=== PATIENT | female | born 2000 | race Asian ===

== ENCOUNTER 2021-08-05 22:02 | Emergency (ER) | payer BC, SELFPAY ==
[2021-08-05 22:16] VITALS: BP 110/69; PULSE 71; RESP 16; TEMP 36.7; O2SAT 98; BMI 23.1
--- NOTE | 2021-08-05 22:20 | ED.PSYCH ---
HPI - Psych General Chief Complaint: Psychiatric Symptoms Stated Complaint: SI Time Seen by Provider: 08/05/21 22:19 Source: patient Mode of arrival: EMS Limitations: no limitations History of Present Illness HPI Narrative: Patient from college [employer] student with history of major depression came to the ED via ambulance with chief complaint of worsening of depression or suicidal ideation plan to jump from the 4th floor patient tried to jump from the window at 4th floor of her dorm but found window was too small. Patient had similar attempts in the past taking multiple medications thought process coherent and endorses depression 06/19 Related Data Home Medications Medication Instructions Recorded Confirmed fluoxetine 40 mg capsule (Prozac) 40 mg PO QAM 08/05/21 08/05/21 lurasidone 60 mg tablet (Latuda) 60 mg PO QPM 08/05/21 08/05/21 trazodone 50 mg tablet 50 mg PO BEDTIME 08/05/21 08/05/21 Allergies Allergy/AdvReac Type Severity Reaction Status Date / Time No Known Allergies Allergy Verified 08/05/21 22:25 Review of Systems Review of Systems: Constitutional : No Fever, No Chills ENT/Mouth : No Ear Pain, No Nasal Congestion, No sore throat Eyes: No Eye Pain, No Swelling, No Redness Cardiovascular : No Chest Pain, No SOB Respiratory : No Cough, No Sputum, No Dyspnea Gastrointestinal : No Nausea, No Vomiting, No Diarrhea, No Hematochezia, No Melena Genitourinary : No Dysuria, No Urinary Frequency, No Hematuria Musculoskeletal : No Myalgias Skin : No Skin Lesions, No rash Neuro : No Weakness, No Numbness, No Paresthesias, No Dizziness, No Headache Psych : positive Anxiety, positive Depression, positive SI Heme/Lymph: No Lymphadenopathy Endocrine : No Polyuria, No Polydipsia [facility] Past Medical History [facility] Narrative: Depression, bipolar disorder Social History Social History Advance Directives: No Advance Directives Information Provided: No Guardian: No Patient : No Physical Exam Vital Signs: Vital Signs: Last Vital Signs Temp 98.1 F 08/05/21 22:16 Pulse 71 08/05/21 22:16 Resp 16 08/05/21 22:16 BP 110/69 08/05/21 22:16 Pulse Ox 98 08/05/21 22:16 Body Mass Index 23.1 Appearance: Alert. Oriented X3. No acute distress. Eyes: PERRLA, No Nystagmus ENT: Pharynx normal. Oral Mucosa moist Neck: Normal inspection. Neck supple. CVS: Normal heart rate and rhythm. Pulses normal. Respiratory: No respiratory distress. Equal air entry bilateral, no wheezing/rales/rhonchi Abdomen: Soft and nontender. Bowel sounds are present, no mass palpable, no CVA tenderness Skin: Skin warm and dry. Normal skin color. Normal skin turgor. Extremities: No lower extremity edema. No calf tenderness psych: Anxious, depressed, feels suicidal no homicidal ideation no hallucination or delusions thought process Coherent Neuro: Oriented X 3. No motor deficit. No sensory deficit.No cerebellar signs , cranial nerves II-XII intact MDM - Psych MDM Narrative Medical decision making narrative: Patient seen by therapist plan to discharge her back to [facility] in the morning Lab Data Labs: Lab Results 08/05/21 08/05/21 08/05/21 Range/Units 22:45 22:45 22:45 Urine Test NEGATIVE (NEGATIVE) Urine Opiates Screen Not Detected (Not Detect) Urine Fentanyl Screen Not Detected (Not Detect) Ur Barbiturates Screen Not Detected (Not Detect) Ur Phencyclidine Scrn Not Detected (Not Detect) Ur Amphetamines Screen Not Detected (Not Detect) U Benzodiazepines Scrn Not Detected (Not Detect) Urine Cocaine Screen Not Detected (Not Detect) U Marijuana (THC) Screen Not Detected (Not Detect) COVID-19 ([facility]) Negative (Negative) COVID-19 Clin Com See Note Discharge Plan Discharge Clinical Impression: Suicidal ideation Depression Qualifiers: Depression Type: major depressive disorder Major depression recurrence: recurrent Active/Remission status: currently active Major depression episode severity: moderate Qualified Code(s): F33.1 - Major depressive disorder, recurrent, moderate Patient Disposition: Home, Self-Care Instructions: Depression (ED), Suicide Prevention (ED) Additional Instructions: Take your medications follow-up with your therapist Prescriptions: No Action fluoxetine [Prozac] 40 mg Capsule 40 mg PO QAM RF: 0 trazodone 50 mg Tablet 50 mg PO BEDTIME RF: 0 Latuda 60 mg Tablet 60 mg PO QPM RF: 0
[2021-08-05 22:58] LABS: UPreg QC Valid YES; Urine Pregnancy NEGATIVE (NEGATIVE)
[2021-08-05 23:11] LABS: COVID-19 Test Negative (Negative)
[2021-08-05 23:13] LABS: Amphetamine Screen Urine Not Detected (Not Detect); Barbiturates, Urine Not Detected (Not Detect); Benzodiazepines Screen Urine Not Detected (Not Detect); Cannabinoid Screen Urine Not Detected (Not Detect); Cocaine Screen Urine Not Detected (Not Detect); Fentanyl, urine Not Detected (Not Detect); Opiate Screen Urine Not Detected (Not Detect); Phencyclidine Screen Urine Not Detected (Not Detect)
--- NOTE | 2021-08-06 02:51 | MHC.CARE ---
CARE team notified by [facility] transportation coordinator clinician that pt was en route to ED for evaluation s/p suicidal ideation and plan. Eval completed with pt with plan for discharge in the morning. CARE team will [place] with [facility] [place] care [place] registered nurse Len Manning ([phone]) for pt to meet with a clinician upon her return to campus.
--- NOTE | 2021-08-06 06:55 | PC.NURSE ---
Patient slept through the night, no distress observed/reported, patient got assessed by care team, disposition Neil follow up by care team and will d/c back to school, behavior appropriate, med rec completed/pending provider['s approval, will continue to monitor.
[2021-08-06 07:52] VITALS: BP 107/68; PULSE 79; RESP 18; TEMP 37.1; O2SAT 98
--- NOTE | 2021-08-06 08:50 | MHC.CARE ---
Spoke to Len Manning and student about appointment times, she is set for 12:30 at [facility]. CARE Team will arrange [employer] on [facility] account for return.
== END 2021-08-06 09:14 | disposition home or self-care (01) ==
PROVIDERS: Emergency Provider Internal Medicine
DX: F33.1 Major depressive disorder, recurrent, moderate (principal); R45.851 Suicidal ideations; Z20.822 Contact with and (suspected) exposure to COVID-19; Z79.899 Other long term (current) drug therapy
CPT/HCPCS: 36415; 80307; 81025; 87635; 99284

== ENCOUNTER 2021-11-02 20:39 | Emergency (ER) | payer BC, SELFPAY ==
[2021-11-02 20:55] VITALS: BP 103/71; PULSE 68; RESP 16; TEMP 36.6; O2SAT 98; BMI 21.7
--- NOTE | 2021-11-02 21:00 | ED.PSYCH ---
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 Color YELLOW Urine Appearance CLEAR Urine pH 7.5 (5.0-8.0) Ur Specific [place] 1.020 (1.005-1.025) Urine Protein NEG (NEG-TRACE) MG/DL Urine Glucose (UA) NEG (NEG) MG/DL Urine Ketones NEG (NEG) MG/DL Urine Blood NEG (NEG) Urine Nitrite NEG (NEG) Ur Leukocyte Esterase 1+ H (NEG) Urine RBC 1-4 (0) /HPF Urine WBC 10-14 H (0-4) /HPF Ur Squamous Epith Cells 2+ /LPF Urine Bacteria 3+ /LPF Urine Mucus 2+ /LPF Urine Test (NEGATIVE) Salicylates (15-30) mg/dL Urine Opiates Screen (Not Detect) Urine Fentanyl Screen (Not Detect) Acetaminophen (<30) mcg/mL Ur Barbiturates Screen (Not Detect) Ur Phencyclidine Scrn (Not Detect) Ur Amphetamines Screen (Not Detect) U Benzodiazepines Scrn (Not Detect) Urine Cocaine Screen (Not Detect) U Marijuana (THC) Screen (Not Detect) Ethyl Alcohol mg/dL COVID-19 ([facility]) (Negative) COVID-19 Clin Com <TOM Barber - Last Filed: 11/03/21 12:45> Discharge Plan Discharge Clinical Impression: Depression Qualifiers: Depression Type: major depressive disorder Major depression recurrence: recurrent Active/Remission status: currently active Major depression episode severity: moderate Qualified Code(s): F33.1 - Major depressive disorder, recurrent, moderate <Alana Davis NP - Last Filed: 11/03/21 00:34> Prescriptions: No Action fluoxetine [Prozac] 40 mg Capsule 80 mg PO QAM RF: 0 trazodone 50 mg Tablet 50 mg PO BEDTIME RF: 0 Latuda 60 mg Tablet 60 mg PO QAM RF: 0 <Alana Davis NP - Last Filed: 11/03/21 00:34>
[2021-11-02 21:36] LABS: MANUAL DIFF FLAG NO
[2021-11-02 21:50] LABS: Ethanol < 10 mg/dL
[2021-11-02 21:56] LABS: Acetaminophen LAB < 1 mcg/mL (<30); Alanine Aminotransferase 17 U/L (0-31); Albumin Level 4.5 g/dL (3.5-5.0); Alkaline Phosphatase 56 U/L (39-117); Amphetamine Screen Urine Not Detected (Not Detect); Anion Gap 12 (12-20); Aspartate Amino Transferase 16 U/L (5-31); Barbiturates, Urine Not Detected (Not Detect); Benzodiazepines Screen Urine Not Detected (Not Detect); Bilirubin Total 0.4 mg/dL (0.0-1.0); Blood Urea Nitrogen 16 mg/dL (9-16); Calcium 9.7 mg/dL (8.4-10.2); Cannabinoid Screen Urine Not Detected (Not Detect); Carbon Dioxide 27 mmol/L (22-29); Chloride 104 mmol/L (96-108); Cocaine Screen Urine Not Detected (Not Detect); Creatinine Clr Calc Pharmacy 102.2; Estimated Glomerular Filt Rate > 60; Fentanyl, urine Not Detected (Not Detect); Glucose Random 91 mg/dL (60-115); Opiate Screen Urine Not Detected (Not Detect); Phencyclidine Screen Urine Not Detected (Not Detect); Potassium 3.8 mmol/L (3.3-5.1); Salicylate < 5.0 mg/dL (15-30); Sodium 139 mmol/L (135-145); Total Protein 7.6 g/dL (6.5-8.0)
[2021-11-02 21:59] LABS: Appearance Urine CLEAR; COVID-19 Test Negative (Negative); Color Urine YELLOW; Glucose Urine UA NEG (NEG); Leukocyte Esterase Urine 1+ (NEG); Nitrite Urine NEG (NEG); PH 7.5 (5.0-8.0); Urine Blood NEG (NEG); Urine Ketones NEG (NEG); Urine Protein NEG (NEG-TRACE)
[2021-11-02 22:02] LABS: UPreg QC Valid YES; Urine Pregnancy NEGATIVE (NEGATIVE)
[2021-11-02 22:04] LABS: Basophils Percent Auto 0.1 % (0-2); Eosinophils Absolute Auto 0.2 X10*3/uL (0.0-0.4); Eosinophils Percent Auto 2.4 % (0-4); Hematocrit 38.5 % (37.0-47.0); Imm Gran Abs Auto 0.05 X10*3/uL (0.00-0.03); Imm Gran Pct Auto 0.7 % (0.0-0.4); Lymphocytes Absolute Auto 1.8 X10*3/uL (1.2-4.9); Lymphocytes Percent Auto 26.1 % (20-40); Mean Corpuscular HGB Conc 33.8 g/dl (31.0-35.0); Mean Corpuscular Hemoglobin 32.7 pg (27.0-33.0); Mean Platelet Volume 10.5 fL (9.4-12.3); Monocytes Absolute Auto 0.8 X10*3/uL (0.1-1.2); Neutrophils Absolute Auto 4.1 x10*3/uL (2.0-8.3); Neutrophils Percent Auto 58.7 % (45-73); Platelet Count 201 X10*3/uL (160-400); Red Blood Count 3.97 X10*6/uL (4.20-5.50); Red Cell Distribution Width 12.4 % (11.0-16.0); White Blood Count 6.9 X10*3/uL (4.8-10.8)
[2021-11-02 22:12] LABS: Bacteria Urine 3+ /LPF; Mucus Urine 2+ /LPF; Squamous Epithelial Cell Urine 2+ /LPF
--- NOTE | 2021-11-02 23:32 | PC.NURSE ---
Per provider order, poison control called twice and spoke with Sakina reported isopropyl ingestion and updated lab values, patient cleared by poison control with an advice to monitor gastritis, patient was assessed by care team, pending disposition at this time, patient currently appears sleeping, no distress observed/reported, VSS, will continue to monitor.
[2021-11-03 06:04] VITALS: BP 107/74; PULSE 72; RESP 16; TEMP 36.8; O2SAT 98
--- NOTE | 2021-11-03 06:19 | PC.NURSE ---
Patient slept through the night, no distress observed/reported, behavior calm, quiet, and pleasant, med rec completed/pending providers approval, patient was screened by care team, pending disposition at this time, patient will be re-screened in the morning by care team, VSS, will continue to monitor.
--- NOTE | 2021-11-03 07:25 | PC.NURSE ---
patient appeared to remain asleep up[on t/w's arrival; respirations are even and unlabored, patient appears in no distress
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
== END 2021-11-03 13:50 | disposition home or self-care (01) ==
PROVIDERS: Nurse Practitioner Family; Emergency Provider Emergency Medicine
DX: F33.1 Major depressive disorder, recurrent, moderate (principal); F41.1 Generalized anxiety disorder; R45.851 Suicidal ideations; Z20.822 Contact with and (suspected) exposure to COVID-19; Z91.51 Personal history of suicidal behavior; Z79.899 Other long term (current) drug therapy
CPT/HCPCS: 36415; 80053; 80143; 80179; 80307; 81001; 81025; 82077; 85025; 87635; 99283

== ENCOUNTER 2023-06-05 04:26 | Emergency (ER) | payer BC, SELFPAY ==
--- NOTE | 2023-06-05 | ECG_ITS ---
Test Reason : SYNCOPE Blood Pressure : / mmHG Vent. Rate : 057 BPM Atrial Rate : 057 BPM P-R Int : 158 ms QRS Dur : 082 ms QT Int : 428 ms P-R-T Axes : 067 071 065 degrees QTc Int : 416 ms Poor data quality, interpretation may be adversely affected Sinus bradycardia Otherwise normal ECG No previous ECGs available Referred By: Generic ED Physician Electronically Signed By:WALLY GUPTA MD
[2023-06-05 04:32] VITALS: BP 96/68; PULSE 64; O2SAT 100
[2023-06-05 04:38] VITALS: BP 100/61; PULSE 61; RESP 16; TEMP 36.9; O2SAT 100; BMI 21.3
[2023-06-05 04:45] VITALS: O2SAT 100
[2023-06-05 04:50] VITALS: BP 93/57; PULSE 56
[2023-06-05 04:51] VITALS: BP 95/62; PULSE 71
[2023-06-05 04:52] VITALS: BP 102/61; PULSE 73
--- NOTE | 2023-06-05 05:13 | ED.GENADULT ---
HPI - General Adult General Chief complaint: Syncope Stated complaint: Near syncope Time Seen by Provider: 06/05/23 04:46 Source: patient Mode of arrival: ambulatory History of Present Illness HPI narrative: This is a 23-year-old female who presents via EMS after she was sitting on the toilet, felt cool and clammy and fell to her knees but did not hit her head but reports loss of consciousness. Patient stated that she had been constipated for 2 days and has improved juice earlier in the evening and then had diarrhea thereafter. She denies any recent fevers, chills, decrease in appetite, body aches, GI or symptoms, new cough or sore throat. Related Data Home Medications Medication Instructions Recorded Confirmed fluoxetine 40 mg capsule (Prozac) 80 mg PO QAM 08/05/21 11/02/21 lurasidone 60 mg tablet (Latuda) 60 mg PO QAM 08/05/21 11/02/21 trazodone 50 mg tablet 50 mg PO BEDTIME 08/05/21 11/02/21 Allergies Allergy/AdvReac Type Severity Reaction Status Date / Time No Known Allergies Allergy Verified 06/05/23 04:45 Review of Systems Review of Systems: Pertinent positives and negatives as stated in HPI [facility] Past Medical History Source: nursing notes reviewed Social History Social History Alcohol intake: never Smoked in Last 30 Days: No Use of substances other than those prescribed or required for medical reasons: No Advance Directives: No Advance Directives Information Provided: Yes Patient : No Physical Exam ED Vital Signs: Vital Signs - 24 hr 06/05/23 04:38 06/05/23 04:45 06/05/23 04:50 Temperature 98.5 F Pulse Rate 61 56 Respiratory Rate 16 Blood Pressure 100/61 93/57 L Pulse Oximetry 100 100 Oxygen Delivery Method Room Air Room Air 06/05/23 04:51 06/05/23 04:52 Temperature Pulse Rate 71 73 Respiratory Rate Blood Pressure 95/62 102/61 Pulse Oximetry Oxygen Delivery Method BMI result Body Mass Index 21.3 VITAL SIGNS: Reviewed. GENERAL: Well developed, well nourished, in no acute distress. HEAD: Normocephalic/atraumatic EYES: PERRLA, EOMI EARS: Ext canals without abnormality NOSE: Nares patent bilateral OROPHARYNX: no oral lesions noted, posterior pharynx clear NECK: Supple, no adenopathy LUNGS: Normal breath sounds. No adventitious sounds or accessory muscle use. SpO2<100> CARDIOVASCULAR: Regular rate and rhythm without noted murmurs ABDOMEN: Soft, non-tender, non-distended with bowel sounds. MUSCULOSKELETAL: No tenderness, deformities, or effusions noted on gross inspection. EXTREMITIES: No cyanosis, clubbing or edema. SKIN: Inspection of the skin reveals no rashes NEUROLOGIC: Alert and oriented x 4. Strength and sensation to light touch were grossly intact x 4. Medical Decision Making Medical Decision Making MDM Narrative: 23-year-old female with history and clinical presentation consistent with likely vasovagal syncope episode, there is no history or findings on clinical exam of infectious etiology, EKG is negative for arrhythmia, and urinalysis is negative for UTI//hematuria. Patient states that she is feeling better at this time, orthostatics are negative. She is otherwise discharged home with instructions to increase fluid intake as well as eating a balanced diet. Differential Diagnosis Differential Diagnoses: The differential diagnosis associated with the presentation includes Please see the discussion above Admission/Observation Consideration of admission/observation: Escalation of care including admission/observation considered Please see the discussion above Lab Data MDM Lab Attestation statement: I reviewed the patient's lab results. Please see the discussion above Labs: Lab Results 06/05/23 06/05/23 Range/Units 05:51 05:51 Urine Color Yellow Urine Appearance Turbid Urine pH 6.0 (5.0-9.0) Ur Specific [place] 1.025 (1.005-1.025) Urine Protein Trace (Neg-Trace) mg/dL Urine Glucose (UA) Negative (Negative) mg/dL Urine Ketones Trace (Negative) mg/dL Urine Blood Negative (Negative) Urine Nitrite Negative (Negative) Ur Leukocyte Esterase Small (1+) H (Negative) Urine Test NEGATIVE (NEGATIVE) Independent Interpretation I performed an independent interpretation of an: EKG Interpretation: Normal sinus rhythm, HR -57, no STEMI, [place]/QRS/QTC is within normal limits. External Record Review External record reviewed: Outpatient record and Prior outpatient labs Discharge Plan Discharge Clinical Impression: Syncope, vasovagal Patient Disposition: Home, Self-Care Instructions: Syncope (ED) Additional Instructions: 1. Resume all home medications as prescribed. 2. Please increase your fluid intake, especially with water. 3. Follow-up with your primary care provider in the next 1-2 days. Return to the ER for any worsening symptoms. Prescriptions: No Action fluoxetine [Prozac] 40 mg Capsule 80 mg PO QAM trazodone 50 mg Tablet 50 mg PO BEDTIME Latuda 60 mg Tablet 60 mg PO QAM
--- NOTE | 2023-06-05 05:25 | PC.NURSE ---
Addendum entered by Samantha Aaron 06/05/23 05:29: Pt denies any ABD pain CP, or palpitations. Original Note: Pt A&Ox4, reports she was sitting on the toilet and felt fait, falling to knees, denies head strike, reports LOC. Pt reports she has been constipated x 2 days and had prune juice prior to event. Pt reports feeling better . Pt placed on bedside monitor, EKG obtained and reviewed by ED provider, orthostatic vitals obtained.
[2023-06-05 05:59] LABS: Appearance Urine Turbid; Color Urine Yellow; Glucose Urine UA Negative (Negative); Leukocyte Esterase Urine Small (1+) (Negative); Nitrite Urine Negative (Negative); Specific Gravity - Urine 1.025 (1.005-1.025); UMIC TRIGGER UACC YES; Urine Blood Negative (Negative); Urine Ketones Trace mg/dL (Negative); Urine Protein Trace mg/dL (Neg-Trace)
[2023-06-05 06:01] LABS: UPreg QC Valid YES; Urine Pregnancy NEGATIVE (NEGATIVE)
[2023-06-05 06:11] LABS: Bacteria Urine 1+ (None Seen); Calcium Oxalate Crystals Urine Present; RBC Urine >20 /HPF (0-2); UACC Culture Trigger YES
== END 2023-06-05 06:19 | disposition home or self-care (01) ==
PROVIDERS: Emergency Provider Student in an Organized Health Care Education/Training Program
DX: R55 Syncope and collapse (principal); R00.1 Bradycardia, unspecified; Z79.899 Other long term (current) drug therapy
CPT/HCPCS: 81001; 81025; 87086; 93005; 99283; 99285

== ENCOUNTER → 2023-06-05 04:57 | Outpatient (BNV) | payer BC, SELFPAY | PROVIDERS: Emergency Provider Student in an Organized Health Care Education/Training Program; Visit Provider Internal Medicine Cardiovascular Disease | DX: R55 Syncope and collapse (principal) | CPT/HCPCS: 93010 ==